=== PATIENT | female | born 1960 | race Two or more races ===

== ENCOUNTER 2018-10-27 09:55 | Emergency (ER) | payer MEDICAID ==
[~2018-10-27] VITALS: Ht 162.6 cm; Wt 83.9 kg
--- NOTE | 2018-10-27 09:55 | NUR ---
PATIENT BIBRA. PER REPORT PATIENT ADMITTED TO TAKING HERBAL SLEEP SUPPLEMENTS AND 6 TYLENOL PM AROUND 3AM BEFORE GOING TO AN APPOINTMENT. PATIENT JUST PLACED ON 51-50 HOLD AND 911 WAS CALLED BY CRISIS JOURNEYMAN PIPEFITTER. A/OX4. NO DEFICITES NOTED. PASSED SWALLOW EVAL. PATIENT STATES CONTINUED DESIRE TO FALL ASLEEP AND NEVER WAKE UP. MD/SEWING DEMONSTRATOR AT BEDSIDE FOR EVAL
--- NOTE | 2018-10-27 10:05 | NUR ---
URINE SAMPLE COLLECT AND SENT FOR LAB FORKLIFT PICKER
[2018-10-27 10:14] LABS: APPEARANCE,URINE Clear (CLEAR); BILIRUBIN,URINE Negative (NEGATIVE); BLOOD, URINE Trace-intact Ery/uL (NEGATIVE); COLOR,URINE Yellow (YELLOW); KETONES,URINE Negative (NEGATIVE); LEUKOCYTE ESTERASE ,URINE Trace (NEGATIVE); NITRITE, URINE Negative (NEGATIVE); PH,URINE 5.5 (5.0-8.0); PROTEIN,URINE Negative (NEGATIVE); UGLUCOSE Negative (NEGATIVE); UROBILINOGEN,URINE 0.2 EU/dL (0.2)
[2018-10-27 10:18] LABS: BASOPHILS # (AUTO) 0.1 /CMM (0.0-0.2); BASOPHILS % (AUTO) 0.8 % (0.0-2.0); EOSINOPHILS % (AUTO) 0.3 % (0.0-6.0); HEMATOCRIT 45 % (33-45); HEMOGLOBIN 15.2 g/dL (11.5-14.8); LYMPHOCYTES % (AUTO) 27.1 % (20.0-44.0); MEAN CORPUSCULAR HGB CONC 34 g/dl (31.0-36.0); MEAN CORPUSCULAR VOLUME 92 fL (82-100); MONOCYTES # (AUTO) 0.3 /CMM (0.1-1.30); MONOCYTES % (AUTO) 3.1 % (2.0-12.0); NEUTROPHILS # (AUTO) 7.6 /CMM (1.8-8.9); NEUTROPHILS % (AUTO) 68.7 % (43.0-81.0); PLATELET COUNT (AUTO) 407 /CMM (150-450); RED BLOOD CELL COUNT(AUTO) 4.88 MIL/uL (4.0-5.2); WHITE BLOOD COUNT (AUTO) 11.1 K/uL (4.3-11.0)
[2018-10-27 10:20] LABS: CALCIUM, SERUM 8.8 mg/dL (8.5-10.1); CREATININE 0.8 mg/dL (0.6-1.3); POTASSIUM 3.9 mmol/L (3.5-5.1)
--- NOTE | 2018-10-27 10:20 | NUR ---
PER PATIENT SHE HAS NOT BEEN ABLE TO SLEEP FOR OVER 3 DAYS AND STATES SHE DOESNT WANT TO KILL HERSELF BUT JUST WANTS TO SLEEP.
[2018-10-27 10:21] LABS: BACTERIA,URINE None seen /HPF (None Seen); SQUAMOUS EPITHELIAL CELL,UR Moderate /HPF (None Seen)
[2018-10-27 10:26] LABS: ALBUMIN 3.9 g/dL (3.4-5.0); BILIRUBIN,DIRECT 0.1 mg/dL (0.0-0.2); BILIRUBIN,TOTAL 0.3 mg/dL (0.2-1.0); SALICYLATE 5.2 mg/dL (2.8-20.0); TOTAL PROTEIN, SERUM 8.2 g/dL (6.4-8.2)
--- NOTE | 2018-10-27 10:29 | NUR ---
CALLED ERENDIRA @ [phone] ETA IS 60 MINS
--- NOTE | 2018-10-27 10:39 | NUR ---
MD AWARE OF PATIENT TOX RESULTS.
--- NOTE | 2018-10-27 10:41 | NUR ---
for [place], PET team: Lanny (PET) - office number: [phone]
--- NOTE | 2018-10-27 11:39 | NUR ---
CRISIS ASSEMBLER MOVEMENT AT BEDSIDE.
--- NOTE | 2018-10-27 12:55 | NUR ---
PER ERENDIRA CRISIS TAFE TEACHER. DC 5150 HOLD. PATIENT SON WILL COME PICK HER UP AND HAVE PATIENT STAY WITH HIM UNTIL SHE SEES HER PSYCHIATRIST TOMORROW. REFERRALS GIVEN TO PATIENT AND SON
--- NOTE | 2018-10-27 13:18 | NUR ---
SON AT BEDSIDE SPEAKING WITH ERENDIRA. PER AND ERENDIRA PATIENT IS OK FOR DISCHARGE.
[2018-10-27 13:20] VITALS: BP 138/74
--- NOTE | 2018-10-27 13:20 | NUR ---
Patient discharged to home in stable condition. Written and verbal after care instructions given. Patient verbalizes understanding of instruction.
== END 2018-10-27 13:21 | disposition home or self-care (01) ==
LOC: ER 09:59
DX: F31.9 Bipolar disorder, unspecified (principal); F17.200 Nicotine dependence, unspecified, uncomplicated
CPT/HCPCS: 36415; 80048-TC; 80076-TC; 80305; 81000-TC; 85025-TC; G0480